=== PATIENT | female | born 1970 | race Caucasian/White ===

== ENCOUNTER 2024-07-08 14:40 | Emergency (ER) | payer OTHER, SELFPAY ==
[2024-07-08 14:48] VITALS: BP 179/100
[2024-07-08 15:11] LABS: % Eosinophils 2.4 % (0-6); % Immature Granulocytes 0.8 % (0-0.5); % Lymphocytes 20.8 % (20.5-51.1); % Monocytes 8.6 % (1.7-9.3); % Neutrophils 66.4 % (42.2-75.2); Absolute Basophils 0.1 10^3/uL (0-0.2); Absolute Eosinophils 0.2 10^3/uL (0-0.7); Absolute Immature Granulocytes 0.1 10^3/uL (0-0.05); Absolute Lymphocytes 1.6 10^3/uL (1.2-3.4); Absolute Monocytes 0.7 10^3/uL (0.1-0.6); Absolute Neutrophils 5.2 10^3/uL (1.4-6.5); Hematocrit 34.9 % (37.0-47.0); Hemoglobin 11.6 g/dL (12.0-16.0); Mean Corp Hgb Conc. 33.2 g/dL (33.0-37.0); Mean Corpuscular Hgb 30.4 pg (27.0-31.0); Mean Corpuscular Volume 91.6 fL (81.0-99.0); Mean Platelet Volume 8.9 fL (7.4-10.4); Nucleated Red Blood Cells % 0 %; Platelet Count 296 10^3/uL (130-400); Red Blood Cell Count 3.81 10^6/uL (4.20-5.40); Red Cell Dist. Width 14.4 % (11.5-14.5); White Blood Cell Count 7.8 10^3/uL (4.8-10.8)
[2024-07-08 15:40] LABS: ALT (SGPT) 26 U/L (0-35); AST (SGOT) 32 U/L (14-36); Albumin 4.5 g/dl (3.5-5.0); Alkaline Phosphatase 87 U/L (38-126); Blood Urea Nitrogen 15 mg/dl (7-17); Calcium 9.3 mg/dl (8.4-10.2); Carbon Dioxide 30 mmol/L (22-30); Chloride 98 mmol/L (98-107); Glucose 115 mg/dl (70-99); Potassium 4.1 mmol/L (3.5-5.1); Sodium 138 mmol/L (135-145); Total Bilirubin 0.9 mg/dl (0.2-1.3); Total Protein 7.4 g/dl (6.3-8.2); eGFR > 60.00
--- NOTE | 2024-07-08 16:53 | ED.GENMED ---
History of Present Illness
General
Chief Complaint: Breathing Problem
Source: patient
Time Seen by Provider: 07/08/24 16:36
History of Present Illness
History of Present Illness:
53-year-old female with past medical history of hypertension presents to the emergency department for evaluation at the request of urgent care after patient was diagnosed with RSV over the weekend by her primary care provider, felt as if she got
more short of breath and symptomatic over the weekend which is what prompted her to urgent care today. Patient reportedly had a chest x-ray done there and an EKG with patient being told her EKG looked abnormal and was advised to come to the ER
further testing. Patient states she was given a Medrol Dosepak and Tessalon Perles by her primary care provider but states she does not feel that this gave her any relief. Patient denies any chest pain, palpitations, diaphoresis, exertional
dyspnea, orthopnea, peripheral edema, hemoptysis or any other concerns.
Past History
Past History
ED Past Medical History: HTN and Psychiatric
ED Past Surgical History: Cholecystectomy, Gynecological and Orthopedic
Social History
Tobacco: Non-smoker
Alcohol: None
Drug: None
Personal:
Living: with family
Review of Systems
Review of Systems
All Other Systems: ROS reviewed and negative except as documented in HPI and ROS
Phy Exam
Physical Exam
Physical Exam:
GENERAL: Alert , in no apparent distress
EYE: conjunctiva clear
NECK: Supple
ENT: o/p clr, mmm. Congested
CARDIAC: Regular rate and rhythm
LUNGS: Very faint left apical wheeze posterior lung sawyer, no acute respiratory distress, no rales/rhonchi, nonproductive cough intermittently throughout the exam
NEUROLOGICAL: Alert and oriented
SKIN: Warm and dry, skin intact.
MUSCULOSKELETAL: well perfused.
PSYCH: Normal and appropriate interaction.
Scores
Heart Failure Risk
Heart Failure Risk Score: Not Applicable
Heart Score for Chest Pain Patients
STEMI patient?: Not applicable
Withdrawal Assessment of Alcohol
Withdrawal Assessment Completed?: Not applicable
Course
Orders/Labs/Results
Orders:
Orders
07/08/24 14:54
Electrocardiogram (*1) Urgent
Reason for Study: Shortness of Breath
EKG- Treatment ONCE
07/08/24 15:03
Complete Blood Count/With Diff Urgent
Comprehensive Metabolic Panel Urgent
07/08/24 16:44
Ipratropium/Albuterol Sulfate [Duoneb] 3 ml INH R NOW ONE
Abnormal Lab Results
07/08/24
15:03
RBC 3.81 L 10^6/uL
(4.20-5.40)
Hgb 11.6 L g/dL
(12.0-16.0)
Hct 34.9 L %
(37.0-47.0)
Abs Immat Gran (auto) 0.1 H 10^3/uL
(0-0.05)
Absolute Monos (auto) 0.7 H 10^3/uL
(0.1-0.6)
Immature Gran % 0.8 H %
(0-0.5)
Glucose 115 H mg/dl
(70-99)
07/08/24 15:03
07/08/24 15:03
Vital Signs
Initial and Last Documented VS:
Initial Vital Signs
Temp Pulse Resp BP Pulse Ox
98.1 F 76 18 179/100 97
07/08/24 14:48 07/08/24 14:48 07/08/24 14:48 07/08/24 14:48 07/08/24 14:48
Last Documented Vital Signs
Temp Pulse Resp BP Pulse Ox
98.1 F 76 18 179/100 97
07/08/24 14:48 07/08/24 14:48 07/08/24 14:48 07/08/24 14:48 07/08/24 14:48
MDM/Problems Addressed
Differential Diagnosis Includes:
RSV, pneumonia, reactive airway disease
MDM/Problems Addressed:
53-year-old female presenting to the ER for evaluation of increased coughing and some mild shortness of breath, recently diagnosed with RSV over the weekend. Went to urgent care today and was reportedly told she had a normal chest x-ray but
possibly abnormal EKG and recommended to come to the ER for further evaluation. EKG done in triage shows a normal sinus rhythm without any ischemic changes. Labs largely unremarkable. Patient advised on supportive care treatments for RSV. Given
her slight wheeze will treat with a DuoNeb here. Patient has a nebulizer machine at home so we will give her medication for this as well as an inhaler. Patient will otherwise be stable for discharge home following.
*Pulse Oximetry
Patient hypoxic: no
*Critical Care Note
Total Time (30-74mins, 75-104mins- exclusive of procedures): Not Applicable
ED Attending Note
-
Portions of this chart may have been created with voice recognition software.� Occasional wrong word or��sound alike� substitutions may have occurred due to the inherent limitations of voice recognition software.
Discharge Plan
Departure
Patient Disposition: Home (Routine Discharge)
Date of Disposition: 07/08/24
Time of Disposition: 17:26
Patient with high blood pressure during this ER visit?: Yes
Discharge Problem:
Respiratory syncytial virus (RSV) infection
Instructions: RSV in adults - Discharge instructions
Prescriptions:
New
albuterol sulfate 2.5 mg /3 mL (0.083 %) solution for nebulization
2.5 mg inhalation QID PRN (Reason: shortness of breath or wheezing) Qty: 180 0RF
albuterol sulfate 90 mcg/actuation HFA aerosol inhaler
2 puff inhalation Q6H PRN (Reason: shortness of breath or wheezing) Qty: 6.7 0RF
Interventions
Interventions:
*Risk Screen - Suicide Last Done: 07/08/24 14:48
*General Assessment Last Done: 07/08/24 14:48
*Neglect/Abuse Screening Last Done: 07/08/24 14:48
*Nursing Disposition Last Done: 07/08/24 17:38
ED- Cardiac Assessment Last Done: 07/08/24 17:37
ED- Pulmonary Assessment Last Done: 07/08/24 17:37
Discharge Date and Time
Discharge Date/Time: 07/08/24 17:38
Print Language: BENGALI
[2024-07-08] MEDS: DUONEB 3 ML INH (17:09)
== END 2024-07-08 17:38 | disposition home or self-care (01) ==
LOC: EMR 14:40
PROVIDERS: EMERGENCY PHYSICIAN Emergency Medicine; FAMILY PHYSICIAN Nurse Practitioner Family
DX: J22 Unspecified acute lower respiratory infection (principal); B97.4 Respiratory syncytial virus as the cause of diseases classified elsewhere; I10 Essential (primary) hypertension
CPT/HCPCS: 99284; 94640; 80053; 85025; 93005